=== PATIENT | male | born 1945 | race Caucasian/White ===

== ENCOUNTER 2016-07-22 08:44 | Outpatient (CLI) | payer MEDICARE, OTHER ==
[2012-09-27 16:04] VITALS: BP 158/88
== END 2016-07-22 08:54 ==
LOC: POD 08:44
PROVIDERS: ATTEND Podiatrist Public Medicine
DX: B35.1 Tinea unguium (principal); L60.0 Ingrowing nail; M79.674 Pain in right toe(s); M79.675 Pain in left toe(s)
CPT/HCPCS: 11721; G0463

== ENCOUNTER 2016-09-09 08:18 | Outpatient (CLI) | payer MEDICARE, OTHER ==
[2012-09-27 16:04] VITALS: BP 158/88
[2016-09-09 09:04] LABS: eGFR (African) > 60; eGFR (Non-African) > 60
== END 2016-09-09 08:20 ==
LOC: LAB 08:18
PROVIDERS: ATTEND Family Medicine
DX: I10 Essential (primary) hypertension (principal); E78.1 Pure hyperglyceridemia; R73.9 Hyperglycemia, unspecified
CPT/HCPCS: 36415; 80053; 80061; 83036

== ENCOUNTER 2016-09-28 10:59 | Day surgery (SDC) | payer MEDICARE, OTHER ==
[2012-09-27 16:04] VITALS: BP 158/88
[~2016-09-28 10:59] MED LIST: LACTATED RINGERS 1,000 ML IV.SOLN IV ONE; LIDOCAINE HCL/PF 2% 100 MG/5 ML VIAL IJ ONE; PROPOFOL 500 MG/50 ML VIAL IV ONE; SALINE FLUSH 10 ML DISP.SYRIN IVF ONE; SEVOFLURANE 250 ML LIQUID IH ONE
--- NOTE | 2016-10-01 08:58 | GI Report ---
REFERRING PHYSICIAN: Dr. Russel Motley MANAGER CORE: Wellington Lam MD PROCEDURE MEDICATION: Propofol as per anesthesia. INDICATIONS: This 71-year-old man is referred for his first colonoscopy. He does have significant central obesity. He weighs 136 kilograms. He has metabolic syndrome, hypertension, hyperlipidemia, and most likely insulin resistance. He denies a family history of colorectal cancer. PROCEDURE PERFORMED: Colonoscopy and polypectomy. PROCEDURE: An Olympus video colonoscope was advanced to the rectum. A slightly atonic redundant colon but we did reach the cecum. The appendiceal orifice and ileocecal valve were normal. On slow withdrawal, the cecum, ascending colon, and transverse colon with no obvious intraluminal lesions noted. The descending colon had some redundancy. At 30 cm in the sigmoid, patient had a 1 cm polyp on a stalk removed with electrocautery and submitted to pathology. Retroflexion of the rectum shows hemorrhoids. FINDINGS: A large polyp removed in the sigmoid colon at 30 cm. RECOMMENDATIONS: 1. A high-fiber diet. 2. Pending the pathology of the polyp, he needs his colon re-looked at again in 3 to 5 years. 3. Increasing fiber in the diet and decreasing calories would be beneficial. cc: Dr. Russel GONZALES
== END 2016-09-28 11:00 ==
LOC: OPSURG 10:59
PROVIDERS: ATTEND Internal Medicine Gastroenterology
DX: Z12.11 Encounter for screening for malignant neoplasm of colon (principal); D12.5 Benign neoplasm of sigmoid colon
CPT/HCPCS: 45385; J2001; J2704; J7120; S1016

== ENCOUNTER 2016-10-07 10:29 | Outpatient (CLI) | payer MEDICARE, OTHER ==
[2012-09-27 16:04] VITALS: BP 158/88
== END 2016-10-07 10:30 ==
LOC: POD 10:29
PROVIDERS: ATTEND Podiatrist Public Medicine
DX: B35.1 Tinea unguium (principal); L60.0 Ingrowing nail; M79.675 Pain in left toe(s); M79.674 Pain in right toe(s)
CPT/HCPCS: 11721; G0463

== ENCOUNTER 2017-01-20 09:27 | Outpatient (CLI) | payer MEDICARE, OTHER ==
[2012-09-27 16:04] VITALS: BP 158/88
== END 2017-01-20 09:30 ==
LOC: POD 09:27
PROVIDERS: ATTEND Podiatrist Public Medicine
DX: B35.1 Tinea unguium (principal); L60.0 Ingrowing nail; M79.674 Pain in right toe(s); M79.675 Pain in left toe(s)
CPT/HCPCS: 11721; G0463

== ENCOUNTER 2017-04-21 08:47 | Outpatient (CLI) | payer MEDICARE, OTHER ==
[2012-09-27 16:04] VITALS: BP 158/88
== END 2017-04-21 09:00 ==
LOC: POD 08:47
PROVIDERS: ATTEND Podiatrist Public Medicine
DX: B35.1 Tinea unguium (principal); L60.0 Ingrowing nail; M79.674 Pain in right toe(s); M79.675 Pain in left toe(s)
CPT/HCPCS: 11721; G0463

== ENCOUNTER 2017-07-21 08:49 | Outpatient (CLI) | payer MEDICARE, OTHER ==
[2012-09-27 16:04] VITALS: BP 158/88
== END 2017-07-21 08:50 ==
LOC: POD 08:49
PROVIDERS: ATTEND Podiatrist Public Medicine
DX: B35.1 Tinea unguium (principal); L60.0 Ingrowing nail; M79.674 Pain in right toe(s); M79.675 Pain in left toe(s)
CPT/HCPCS: 11721; G0463

== ENCOUNTER 2017-09-09 08:05 | Outpatient (CLI) | payer MEDICARE, OTHER ==
[2012-09-27 16:04] VITALS: BP 158/88
[2017-09-09 09:48] LABS: eGFR (African) > 60; eGFR (Non-African) > 60
== END 2017-09-09 09:39 ==
LOC: LAB 08:05
PROVIDERS: ATTEND Family Medicine
DX: I10 Essential (primary) hypertension (principal); R73.9 Hyperglycemia, unspecified; Z11.59 Encounter for screening for other viral diseases
CPT/HCPCS: 36415; 80053; 80061; 83036; 86803

== ENCOUNTER 2017-09-20 09:05 | Outpatient (CLI) | payer MEDICARE, OTHER ==
[2012-09-27 16:04] VITALS: BP 158/88
--- NOTE | 2017-09-20 09:30 | Diagnostic Imaging Report ---
INGRIS STEWART [facility] [id number] [facility].[address] [id number] Report Submission Date: Sep 20, 2017 9:27:58 AM CDT Patient Study Name: STUART LARSEN Date: Sep 20, 2017 9:08:42 AM CDT Modality Type: DX Gender: M Description: LOWER EXTREMITY : 47 Institution: [facility] Physician: INGRIS STEWART Examination: Plain film left foot History: PAIN ON 5TH METATARSAL X 2 MONTHS (Hx) Findings: 3 views of the left foot demonstrates articular degenerative spurring. Thickening of the mid aspect of the 3rd metatarsal. No other cortical abnormality. Inferior calcaneal spur. No soft tissue swelling. No joint effusion. Impression: Mild degenerative changes. Healing/old 3rd metatarsal fracture - possibly stress related. Electronically signed on Sep 20, 2017 9:27:58 AM CDT by: Bill GONZALES
== END 2017-09-20 09:06 ==
LOC: RAD 09:05
PROVIDERS: ATTEND Family Medicine
DX: M79.672 Pain in left foot (principal)
CPT/HCPCS: 73630

== ENCOUNTER 2017-10-20 08:46 | Outpatient (CLI) | payer MEDICARE, OTHER ==
[2012-09-27 16:04] VITALS: BP 158/88
== END 2017-10-20 08:48 ==
LOC: POD 08:46
PROVIDERS: ATTEND Podiatrist Public Medicine
DX: B35.1 Tinea unguium (principal); L60.0 Ingrowing nail; M79.675 Pain in left toe(s); M79.674 Pain in right toe(s)
CPT/HCPCS: 11721; G0463

== ENCOUNTER 2018-01-19 09:05 | Outpatient (CLI) | payer MEDICARE, OTHER ==
[2012-09-27 16:04] VITALS: BP 158/88
== END 2018-01-19 09:06 ==
LOC: POD 09:05
PROVIDERS: ATTEND Podiatrist Public Medicine
DX: B35.1 Tinea unguium (principal); L60.0 Ingrowing nail; M79.674 Pain in right toe(s); M79.675 Pain in left toe(s)
CPT/HCPCS: 11721; G0463

== ENCOUNTER 2018-09-14 08:13 | Outpatient (CLI) | payer MEDICARE, OTHER ==
[2012-09-27 16:04] VITALS: BP 158/88
[2018-09-14 09:09] LABS: eGFR (Non-African) > 60
== END 2018-09-14 08:14 ==
LOC: LAB 08:13
PROVIDERS: ATTEND Family Medicine
DX: I10 Essential (primary) hypertension (principal); R73.9 Hyperglycemia, unspecified
CPT/HCPCS: 36415; 80053; 80061; 83036

== ENCOUNTER 2018-09-21 09:40 | Outpatient (CLI) | payer MEDICARE, OTHER ==
[2012-09-27 16:04] VITALS: BP 158/88
--- NOTE | 2018-09-21 20:31 | Diagnostic Imaging Report ---
INGRIS STEWART [facility] [id number] [facility].[address] [id number] Report Submission Date: Sep 21, 2018 10:42:17 AM CDT Patient Study Name: STUART LARSEN Date: Sep 21, 2018 10:07:25 AM CDT Modality Type: US Gender: M Description: US EXTREMITY VEINS UNILAT : 47 Institution: [facility] Physician: INGRIS STEWART Examination: Ultrasound left vein History: Left lower extremity swelling Findings: Sonographic evaluation of the left lower extremity venous system from the groin to the popliteal fossa inclusive. Normal compressibility. No luminal filling defect. Normal waveforms and response to augmentation. No popliteal region fluid collection. Impression: No evidence for deep venous thrombosis. Electronically signed on Sep 21, 2018 10:42:17 AM CDT by: Bill GONZALES
== END 2018-09-21 09:42 ==
LOC: RAD 09:40
PROVIDERS: ATTEND Family Medicine
DX: R42 Dizziness and giddiness (principal); R60.9 Edema, unspecified
CPT/HCPCS: 93971